=== PATIENT | female | born 1980 | race Caucasian/White ===

== ENCOUNTER 2018-08-18 09:29 | Emergency (ER) | payer SELFPAY ==
[~2018-08-18] VITALS: Ht 160 cm; Wt 59.0 kg
[2018-08-18 09:37] VITALS: BP 103/67
--- NOTE | 2018-08-18 09:37 | NUR ---
PT AMBULATED TO ER BED 11
--- NOTE | 2018-08-18 09:40 | NUR ---
Pt bib self AAO X4. c/o LLQ abdominal pain 10/10 sharp x 2 weeks. 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 Denies N/V/D. Urine noted to be orange. Bowel sounds x 4, normoactive, BM yesterday, non tender upon palpation. vss. patient positioned for comfort. HOB elevated. Bedrails up x1, on low bed position, locked. ER made aware of pt status.
--- NOTE | 2018-08-18 10:00 | NUR ---
Pt laying on bed in supine position, eyes open, respirations e/u, on full monitor bed in low position, locked, no identified requests at this time. Will continue to monitor closely.
--- NOTE | 2018-08-18 10:00 | NUR ---
edmd at bedside performing mse
[2018-08-18 10:54] LABS: BILIRUBIN,URINE NEGATIVE (NEGATIVE); BLOOD, URINE TRACE-I (NEGATIVE); COLOR,URINE ORANGE (YELLOW); LEUKOCYTE ESTERASE ,URINE NEGATIVE (NEGATIVE); NITRITE, URINE NEGATIVE (NEGATIVE); PH,URINE 6.5 (5.0-9.0); UGLUCOSE NEGATIVE (NEGATIVE)
[2018-08-18 11:03] LABS: APPEARANCE,URINE SLIGHTLY HAZY (CLEAR); RBC,URINE 0-5 /HPF (0-5); WBC,URINE 0-5 /HPF (0-5)
[2018-08-18 12:53] VITALS: BP 105/73
== END 2018-08-18 13:00 | disposition home or self-care (01) ==
LOC: MED 09:29
DX: R10.2 Pelvic and perineal pain (principal); G89.29 Other chronic pain; Z87.42 Personal history of other diseases of the female genital tract
CPT/HCPCS: 76856; 81001; 81025; 99284; Q0092